=== PATIENT | male | born 1955 | race Asian ===

== ENCOUNTER 2022-12-02 09:40 | Day surgery (SDC) | payer OTHER ==
[~2022-12-02] VITALS: Ht 170.2 cm; Wt 79.4 kg
[2022-12-02] MEDS ORDERED: fentaNYL citrate 0.05 MG/ML VIAL ONE (10:55)
[2022-12-02] MEDS ORDERED: LIDOCAINE 2% 100 MG/5 ML UJET TP ONE (10:55)
[2022-12-02] MEDS ORDERED: fentaNYL citrate 0.05 MG/ML VIAL IVP ONE (12:00)
== END 2022-12-02 12:14 | disposition home or self-care (01) ==
LOC: MDS 09:40 → MMU 09:41 → MDS 12:14
PROVIDERS: ATTEND Internal Medicine Gastroenterology
DX: Z12.11 Encounter for screening for malignant neoplasm of colon (principal); K63.5 Polyp of colon; K57.30 Diverticulosis of large intestine without perforation or abscess without bleeding; Z80.0 Family history of malignant neoplasm of digestive organs; I10 Essential (primary) hypertension; E78.5 Hyperlipidemia, unspecified; G47.00 Insomnia, unspecified; Z79.899 Other long term (current) drug therapy; Z20.822 Contact with and (suspected) exposure to COVID-19
CPT/HCPCS: 45385; 87426; J3010